=== PATIENT | male | born 1960 | race Caucasian/White ===

== ENCOUNTER → 2018-05-30 | Outpatient (CLI) | payer BC ==
--- NOTE | 2018-05-30 15:30 | PCVCIMAG ---
APPROVED REPORT Study performed: 05/30/2018 11:48:36 Exam: Stress Echocardiogram Indication: Hyperlipidemia, Abnormal calcium score Patient Location: Echo lab Stress Nurse: Suly Shah RN Status: routine Ht: 5 ft 10 in HR: 62 bpm BP: 110/70 mmHg Rhythm: NSR Medical History Exercise History: Physically active Procedure The patient underwent an Exercise Stress Test using the Josse Protocol. Blood pressure, heart rate, and EKG were monitored. An Echocardiogram was performed by garage door technician in four stages in quad fashion. At peak stress, four selected images were obtained and placed side by side with resting images for comparison. Stress Test Details Stress Test: Exercise stress testing was performed using a Josse protocol. HR Resting HR: 62 bpmMax Heart Rate (APMHR): 161 bpm Max HR Achieved: 157 bpmTarget HR (85% APMHR): 136 bpm % of APMHR: 97 Recovery HR: 85 bpm HR response to stress: Normal HR response to stress BP Resting BP: 110/70 mmHg Max BP: 154/68 mmHg Recovery BP: 132/78 mmHg BP response to stress: Normal blood pressure response to stress. ECG Resting ECG: Sinus Rhythm Stress ECG: Sinus Rhythm Arrhythmia: VPC's Recovery ECG: Sinus Rhythm Clinical Reason for Termination: Maximal effort Exercise duration: 12 min 24 sec Highest Stage Achieved: Stage 4: 4.2 mph at 16% grade. Exercise capacity: 14.80 METs Overall Exercise Capacity for Age: Good Stress ECG Conclusion 1. Subjectively negative for ischemi 2. Elective cardiographic C negative for ischemia 3 Satisfactory functional capacity Pre-Stress Echo The resting Echocardiogram showed normal left ventricular contractility with an estimated Ejection Fraction of about 55-60%. Normal wall motion in all segments on baseline images. Post-Stress Echo The stress Echocardiogram showed normalnormal left ventricular contractility with an estimated Ejection Fraction of about 65-70%. Normal augmentation of wall motion in all segments on post stress images. Clinical No clinical or ECG evidence for ischemia. Conclusion Clinical Response: Non-ischemic Exercise Capacity: Superior Stress ECG Response: Non-ischemic Stress Echo Images: Non-ischemic The left ventricle is normal in size and wall thickness in both the rest and stress images. 1. Low risk study Other Information Study Quality: Good <Conclusion> The left ventricle is normal in size and wall thickness in both the rest and stress images. 1. Low risk study
== END | disposition home or self-care (01) ==
LOC: PCVCIMAG 11:31
PROVIDERS: ATTEND Internal Medicine
DX: I25.119 Atherosclerotic heart disease of native coronary artery with unspecified angina pectoris (principal); R93.1 Abnormal findings on diagnostic imaging of heart and coronary circulation; E78.5 Hyperlipidemia, unspecified
CPT/HCPCS: 93325; 93351